=== PATIENT | male | born 1955 | race Caucasian/White ===

== ENCOUNTER → 2016-05-20 | Outpatient (CLI) | payer OTHER ==
[2016-05-20 13:45] LABS: BLOOD GAS CARBOXYHEMOGLOBIN 1.3 % (0-4); BLOOD GAS HCO3 24 mmol/L (22-26); BLOOD GAS O2 HGB SATURATION 94 % (90-100); BLOOD GAS OXYGEN CONTENT 19.9 Vol % (12.0-20.0); BLOOD GAS PCO2 40 mmHg (38-42); BLOOD GAS PO2 83 mmHg (61-120); CRITICAL VALUE NO; DRAW SITE RT RADIAL; FIO2 21 %; NUMBER OF ARTERIAL PUNCTURES 1; TEMP CORR TO 98.6
[2016-05-20 13:46] LABS: STAT NO; ULNAR PULSE PRESENT
--- NOTE | 2016-06-02 10:07 | RSPPFT ---
DATE OF PROCEDURE: 05/20/16 COMMENTS: Spirometry with FVC of 4.0, FEV1 of 3.1, FEV1/FVC ratio at 77%. Slow vital capacity is 94% of predicted. TLC is 94%. Diffusion capacity is normal. Room air arterial blood gases show pH of 7.40, PCO2 of 40, PO2 of 83. IMPRESSION: 1. No evidence of airways obstruction or airways restriction. 2. Normal diffusion capacity. 3. Adequate oxygenation and alveolar ventilation.
== END ==
LOC: HRSP 12:10
PROVIDERS: ATTEND Internal Medicine Sleep Medicine
DX: R06.00 Dyspnea, unspecified (principal)
CPT/HCPCS: 36600; 82805; 94060; 94726; 94729